=== PATIENT | female | born 1940 | race Caucasian/White ===

== ENCOUNTER 2016-07-28 02:57 | Emergency (ER) | payer MEDICARE, BC ==
[2016-07-28] MEDS ORDERED: Albuterol/Ipratropium 3.0-0.5 MG/3 ML Neb Soln ONE (03:03)
[2016-07-28] MEDS ORDERED: Sodium Chloride 0.9% 10 ML Syringe FLUSH PRN (03:08)
[2016-07-28] MEDS ORDERED: methylPREDNISolone Sodium Succinate 125 MG/2 ML SDV IVPUSH ONE (03:15)
[2016-07-28] MEDS ORDERED: Sodium Chloride 0.9% 1,000 ML IV SCH (03:15)
[2016-07-28] MEDS ORDERED: Aspirin 81 MG Tab.Chew PO ONE (03:16)
[2016-07-28] MEDS ORDERED: Albuterol/Ipratropium 3.0-0.5 MG/3 ML Neb Soln NEB ONE (03:18)
[2016-07-28] MEDS ORDERED: Furosemide 40 MG/4 ML VIAL IVPUSH ONE (04:51)
[2016-07-28 04:58] VITALS: BP 179/81
--- NOTE | 2016-07-28 05:01 | EDM.PDOC ---
ED HISTORY OF PRESENT ILLNESS - General Chief Complaint: Respiratory Problem Stated Complaint: SOB Time Seen by Provider: 07/28/16 03:04 Source: Reports: Patient, Family History Limitations: Reports: No limitations - History of Present Illness INITIAL COMMENTS - FREE TEXT/NARRATIVE: Patient is developed increased muscle shortness of breath and wheezing over the last 24 hours. It became more intense tonight. Patient brought to the wrist and prior for treatment. The patient has recently been started on Namzaric. She did have a stomach flu last week. Symptom Onset Date: 07/26/16 Timing/Duration: Reports: Hour(s):, Getting worse Severity: moderate Location, General: Reports: chest Quality: Reports: Pressure Improves with: Reports: None Worsens with: Reports: Movement Associated Symptoms: Reports: chest pain, cough. Denies: diaphoresis, fever/ chills Treatment(s) CAMPUS MANAGER: Reports: Other medication(s) - Related Data Allergies/ADRs: Allergies Allergy/AdvReac Type Severity Reaction Status Date / Time Penicillins Allergy Rash Verified 03/05/16 06:41 Sulfa (Sulfonamide Allergy Rash Verified 03/05/16 06:41 Antibiotics) Home Meds: Home Meds Albuterol [Ventolin 2 MG/5 ML] 2 puff PO BID PRN 06/05/14 [History] Aspirin [Halfprin] 81 mg PO DAILY 06/05/14 [History] Metoprolol Succinate [Toprol Xl] 100 mg PO BID 06/05/14 [History] Simvastatin [Zocor] 40 mg PO BID 06/05/14 [History] Losartan [Cozaar] 50 mg PO DAILY 07/28/16 [History] Memantine HCl/Donepezil HCl [Namzaric 28 mg-10 mg Capsule] 0.5 each PO DAILY [History] Past Medical History HEENT History: Reports: Allergic rhinitis, Cataract, Impaired vision Cardiovascular History: Reports: Blood clots/VTE/DVT, Heart murmur, High cholesterol, Hypertension Respiratory History: Reports: Asthma, Bronchitis, recurrent, Pneumonia, recurrent Gastrointestinal History: Reports: Gastritis, Hepatitis, Jaundice Genitourinary History: Reports: Retention, urinary, UTI, recurrent SKIDDER RUNNER History: Reports: Ectopic , , Spontaneous Musculoskeletal History: Reports: Arthritis, Osteoarthritis Neurological History: Reports: Alzheimers disease, Migraines Endocrine/Metabolic History: Reports: Obesity/BMI 30+ Hematologic History: Reports: None Dermatologic History: Reports: None - Infectious Disease History Infectious Disease History: Reports: Chicken pox, Hepatitis C, Measles, Mumps - Past Surgical History Head Surgeries/Procedures: Reports: None HEENT Surgical History: Reports: Cataract surgery Cardiovascular Surgical History: Reports: None Respiratory Surgical History: Reports: None GI Surgical History: Reports: Colonoscopy Female Surgical History: Reports: Tubal ligation Endocrine Surgical History: Reports: None Neurological Surgical History: Reports: None Musculoskeletal Surgical History: Reports: None Dermatological Surgical History: Reports: None Social & Family History - Family History Family Medical History: Noncontributory - Tobacco Use Smoking Status *Q: Former Smoker Years of Tobacco use: 10 Packs/Tins Daily: 0.5 Used Tobacco, but Quit: Yes Month Tobacco Last Used: july 2015 Second Hand Smoke Exposure: No - Caffeine Use Caffeine Use: Reports: Coffee, Soda - Alcohol Use Days Per Week of Alcohol Use: 0 - Recreational Drug Use Recreational Drug Use: No ED ROS GENERAL - Review of Systems Review Of Systems: See Below Constitutional: Reports: no symptoms, fatigue HEENT: Reports: No symptoms Respiratory: Reports: Shortness of Breath, Wheezing, Pleuritic Chest Pain, Cough Cardiovascular: Reports: Dyspnea on exertion, Lightheadedness Endocrine: Reports: fatigue GI/Abdominal: Reports: Abdominal pain : Reports: frequency, urgency Musculoskeletal: Reports: back pain, joint pain, muscle pain Skin: Reports: dryness Neurological: Reports: Confusion, Other (Early dementia) Psychiatric: Reports: Confusion Hematologic/Lymphatic: Reports: no symptoms Immunologic: Reports: no symptoms ED EXAM, GENERAL - Physical Exam Exam: See Below Exam Limited By: No limitations General Appearance: alert, WD/WN, anxious, mild distress Eye Exam: bilateral eye: normal inspection Ears: normal external exam, hearing grossly normal Nose: normal inspection Throat/Mouth: Normal inspection Head: atraumatic, normocephalic Neck: supple, non-tender, limited range of motion Respiratory/Chest: rales, wheezing. No: no respiratory distress Cardiovascular: regular rate, rhythm, bradycardia. No: normal peripheral pulses GI/Abdominal: soft, non tender Back Exam: decreased range of motion Extremities: pedal edema, slow capillary refill, leg pain Neurological: alert, oriented Psychiatric: normal affect, normal mood, anxious (Patient's anxiety cleared) Skin Exam: Warm, Dry, Intact, Normal color Course - Vital Signs Last Recorded V/S: Last Vital Signs Temp 96.5 F 07/28/16 03:05 Pulse 69 07/28/16 03:30 Resp 20 07/28/16 03:30 BP 160/72 H 07/28/16 03:30 Pulse Ox 92 L 07/28/16 03:30 - Orders/Labs/Meds Orders: Active Orders 24 hr Category Date Time Status Cardiac Monitoring [RC] .As Directed Care 07/28/16 03:16 Active EKG Documentation Completion [RC] ASDIRECTED Care 07/28/16 03:16 Active Peripheral IV Care [RC] . DIRECTED Care 07/28/16 03:08 Active RT Aerosol Therapy [RC] ASDIRECTED Care 07/28/16 03:19 Active Chest 1V Frontal [CR] Stat Exams 07/28/16 03:08 Ordered Sodium Chloride 0.9% [Normal Saline] 1,000 ml Med 07/28/16 03:15 Active IV ASDIRECTED Sodium Chloride 0.9% [Saline Flush] Med 07/28/16 03:08 Active 10 ml FLUSH ASDIRECTED PRN Peripheral IV Insertion Adult [OM.PC] Stat Oth 07/28/16 03:06 Ordered EKG 12 Lead [EK] Stat Ther 07/28/16 03:16 Ordered Medication Orders Sodium Chloride (Normal Saline) 1,000 mls @ 125 mls/hr IV ASDIRECTED CAYLA Last Admin: 07/28/16 03:31 Dose: 125 mls/hr Sodium Chloride (Saline Flush) 10 ml FLUSH ASDIRECTED PRN PRN Reason: Keep Vein Open Labs: Laboratory Tests 07/28/16 07/28/16 07/28/16 Range/Units 03:06 03:06 03:15 WBC 7.6 (4.5-11.0) K/uL RBC 4.17 (3.30-5.50) M/uL Hgb 12.6 (12.0-15.0) g/dL Hct 38.9 (36.0-48.0) % MCV 93 (80-98) fL MCH 30 (27-31) pg MCHC 32 (32-36) % Plt Count 376 (150-400) K/uL Neut % (Auto) 56 (36-66) % Lymph % (Auto) 34 (24-44) % Clay % (Auto) 8 H (2-6) % Eos % (Auto) 1 L (2-4) % Baso % (Auto) 0 (0-1) % Sodium 145 (140-148) mmol/L Potassium 4.1 (3.6-5.2) mmol/L Chloride 107 (100-108) mmol/L Carbon Dioxide 29 (21-32) mmol/L Anion Gap 9.4 (5.0-14.0) mmol/L BUN 12 (7-18) mg/dL Creatinine 0.8 (0.6-1.0) mg/dL Est Cr Clr Drug Dosing TNP Estimated GFR (MDRD) > 60 (>60) Glucose 131 H (74-106) mg/dL Calcium 8.3 L (8.5-10.1) mg/dL Total Bilirubin 0.6 (0.2-1.0) mg/dL AST 21 (15-37) U/L ALT 26 (12-78) U/L Alkaline Phosphatase 101 (46-116) U/L Troponin I (0.000-0.056) ng/mL [id number] Pept 593 H (5-450) pg/mL Total Protein 6.7 (6.4-8.2) g/dL Albumin 3.5 (3.4-5.0) g/dL Globulin 3.2 (2.3-3.5) g/dL Albumin/Globulin Ratio 1.1 L (1.2-2.2) Urine Color Urine Appearance Urine pH (4.5-8.0) Ur Specific [place] (1.008-1.030) Urine Protein (NEGATIVE) mg/dL Urine Glucose (UA) (NEGATIVE) mg/dL Urine Ketones (NEGATIVE) mg/dL Urine Occult Blood (NEGATIVE) Urine Nitrite (NEGATIVE) Urine Bilirubin (NEGATIVE) Urine Urobilinogen (NORMAL) mg/dL Ur Leukocyte Esterase (NEGATIVE) Urine RBC (0-5) Urine WBC (0-5) Ur Epithelial Cells Amorphous Sediment Urine Bacteria Urine Mucus 07/28/16 07/28/16 Range/Units 03:16 04:35 WBC (4.5-11.0) K/uL RBC (3.30-5.50) M/uL Hgb (12.0-15.0) g/dL Hct (36.0-48.0) % MCV (80-98) fL MCH (27-31) pg MCHC (32-36) % Plt Count (150-400) K/uL Neut % (Auto) (36-66) % Lymph % (Auto) (24-44) % Clay % (Auto) (2-6) % Eos % (Auto) (2-4) % Baso % (Auto) (0-1) % Sodium (140-148) mmol/L Potassium (3.6-5.2) mmol/L Chloride (100-108) mmol/L Carbon Dioxide (21-32) mmol/L Anion Gap (5.0-14.0) mmol/L BUN (7-18) mg/dL Creatinine (0.6-1.0) mg/dL Est Cr Clr Drug Dosing Estimated GFR (MDRD) (>60) Glucose (74-106) mg/dL Calcium (8.5-10.1) mg/dL Total Bilirubin (0.2-1.0) mg/dL AST (15-37) U/L ALT (12-78) U/L Alkaline Phosphatase (46-116) U/L Troponin I 0.017 (0.000-0.056) ng/mL Fuc-I-Cfpyhzddawl Pept (5-450) pg/mL Total Protein (6.4-8.2) g/dL Albumin (3.4-5.0) g/dL Globulin (2.3-3.5) g/dL Albumin/Globulin Ratio (1.2-2.2) Urine Color Yellow Urine Appearance Cloudy Urine pH 5.0 (4.5-8.0) Ur Specific [place] 1.020 (1.008-1.030) Urine Protein Negative (NEGATIVE) mg/dL Urine Glucose (UA) Normal (NEGATIVE) mg/dL Urine Ketones Negative (NEGATIVE) mg/dL Urine Occult Blood Negative (NEGATIVE) Urine Nitrite Negative (NEGATIVE) Urine Bilirubin Negative (NEGATIVE) Urine Urobilinogen Normal (NORMAL) mg/dL Ur Leukocyte Esterase Moderate (NEGATIVE) Urine RBC 5-10 H (0-5) Urine WBC 10-20 H (0-5) Ur Epithelial Cells Moderate Amorphous Sediment Few Urine Bacteria Moderate Urine Mucus Few Meds: Medications Generic Name Dose Route Start Last Admin Trade Name Freq PRN Reason Stop Dose Admin Sodium Chloride 1,000 mls @ 125 mls/hr 07/28/16 03:15 07/28/16 03:31 Normal Saline IV 125 mls/hr ASDIRECTED CAYLA Administration Sodium Chloride 10 ml 07/28/16 03:08 Saline Flush FLUSH ASDIRECTED PRN Keep Vein Open Discontinued Medications Generic Name Dose Route Start Last Admin Trade Name [place] PRN Reason Stop Dose Admin Albuterol/Ipratropium Confirm 07/28/16 03:03 07/28/16 03:31 Duoneb 3.0-0.5 Mg/3 Ml Administered 07/28/16 03:04 Not Given Dose 3 ml .ROUTE .STK-MED ONE Albuterol/Ipratropium 3 ml 07/28/16 03:18 07/28/16 03:05 Duoneb 3.0-0.5 Mg/3 Ml NEB 07/28/16 03:19 3 ml ONETIME ONE Administration Aspirin 324 mg 07/28/16 03:16 07/28/16 03:25 Aspirin PO 07/28/16 03:17 324 mg ONETIME ONE Administration Furosemide 40 mg 07/28/16 04:51 Lasix IVPUSH 07/28/16 04:52 ONETIME ONE Methylprednisolone Sodium Succinate 125 mg 07/28/16 03:15 07/28/16 03:26 Solu-Medrol IVPUSH 07/28/16 03:16 125 mg ONETIME ONE Administration - Radiology Interpretation Free Text/Narrative:: Chest x-ray appears to show mild congestive heart failure Departure - Departure Time of Disposition: 04:56 Disposition: Home, Self-Care 01 Condition: fair Clinical Impression: Congestive heart failure Qualifiers: Congestive heart failure type: systolic Congestive heart failure chronicity: acute Qualified Code(s): I50.21 - Acute systolic (congestive) heart failure Forms: ED Department Discharge Additional Instructions: Patient was seen in the emergency with some shortness of breath. The shortness of breath. She related extra fluid buildup in the lungs. The patient also has a slow heart rate. This appears to be related to the dose of metoprolol she is taking. Patient was given Lasix 40 mg IV. The patient will be discharged to home on this medication change, reduce metoprolol tartrate to 50 mg twice a day. I'm going to add Lasix 20 mg a day. I want her to see Dr. Gaming on Wednesday or I want her to have a daily weight diary. Return to the emergency room if there is increased difficulty breathing or chest pain - Problem List Review Problem List Initiated/Reviewed/Updated: Yes - My Orders Last 24 Hours: My Active Orders 07/28/16 03:06 Peripheral IV Insertion Adult [OM.PC] Stat 07/28/16 03:08 Peripheral IV Care [RC] . DIRECTED Chest 1V Frontal [CR] Stat Sodium Chloride 0.9% [Saline Flush] 10 ml FLUSH ASDIRECTED PRN 07/28/16 03:15 Sodium Chloride 0.9% [Normal Saline] 1,000 ml IV ASDIRECTED 07/28/16 03:16 Cardiac Monitoring [RC] .As Directed EKG Documentation Completion [RC] ASDIRECTED EKG 12 Lead [EK] Stat 07/28/16 03:19 RT Aerosol Therapy [RC] ASDIRECTED - Assessment/Plan Last 24 Hours: My Active Orders 07/28/16 03:06 Peripheral IV Insertion Adult [OM.PC] Stat 07/28/16 03:08 Peripheral IV Care [RC] . DIRECTED Chest 1V Frontal [CR] Stat Sodium Chloride 0.9% [Saline Flush] 10 ml FLUSH ASDIRECTED PRN 07/28/16 03:15 Sodium Chloride 0.9% [Normal Saline] 1,000 ml IV ASDIRECTED 07/28/16 03:16 Cardiac Monitoring [RC] .As Directed EKG Documentation Completion [RC] ASDIRECTED EKG 12 Lead [EK] Stat 07/28/16 03:19 RT Aerosol Therapy [RC] ASDIRECTED
--- NOTE | 2016-07-28 09:31 | CR ---
Chest 1V Frontal HISTORY: Shortness of breath. COMPARISON: 09/28/2011 FINDINGS: Interstitial prominence likely represent pulmonary edema. Borderline cardiomegaly. No dens e infiltrate or effusion. Impression: Mild CHF.
== END 2016-07-28 05:22 | disposition home or self-care (01) ==
LOC: JP.ED 02:57
DX: I11.0 Hypertensive heart disease with heart failure (principal); I50.21 Acute systolic (congestive) heart failure; J45.909 Unspecified asthma, uncomplicated; Z88.0 Allergy status to penicillin; Z88.2 Allergy status to sulfonamides; Z79.82 Long term (current) use of aspirin; Z79.899 Other long term (current) drug therapy; E78.00 Pure hypercholesterolemia, unspecified; Z98.890 Other specified postprocedural states
CPT/HCPCS: 36415; 71010; 80053; 81001; 83880; 84484; 85025; 93005; 96374; 99285; A9270; J1940; J2930; J7040; J7050; J7620; 93010; 99284